=== PATIENT | female | born 1995 ===

== ENCOUNTER 2024-05-31 07:23 | Inpatient (IN) ==
[2024-05-31] MEDS ORDERED: Lidocaine 1% VIAL 10 MG/ML 30 ML VIAL INJ PRN (07:51)
[2024-05-31] MEDS ORDERED: Prochlorperazine 5 mg/ml 2 ml VIAL (10 mg) IV PRN (07:51)
[2024-05-31] MEDS ORDERED: Nalbuphine 10 MG/ML 1 ML VIAL IV PRN (07:51)
[2024-05-31 08:19] LABS: Hematocrit 36.4 % (35-45); Hemoglobin 12.3 g/dL (11.5-14.3); Mean Corpuscular Hemoglobin 34.7 pg (27-33); Mean Corpuscular Hgb Conc 33.8 g/dL (31-36); Mean Corpuscular Volume 102.5 fL (80-97); Mean Platelet Volume 10.3 fL (7.5-11.2); Platelet Count 121 10^3/uL (150-450); Red Blood Count 3.56 10^6/uL (3.63-4.92); Red Cell Distribution Width 12.6 % (12-17); White Blood Count 16.5 10^3/uL (3.8-11.8)
[2024-05-31 08:52] LABS: ABS Lymphocytes 0.9 10^3/uL (1.0-4.8); ABS Monocytes 0.7 10^3/uL (0.0-0.9); ABS Neutrophils 14.8 10^3/uL (1.5-7.6); ABS Nucleated RBC 0.01 10^3/ul; Lymphocyte % 5.6 %; Nucleated Red Blood Cells % 0.1 %/100WBC (0.0-0.8)
[2024-05-31] MEDS ORDERED: Sodium Citrate/Citric Acid LIQ 15 ML UDC PO PRN (09:56)
[2024-05-31] MEDS ORDERED: Phenylephrine 40 mcg/mL 10mL (400mcg) SYRINGE IV PUSH PRN ×2 (09:56)
[2024-05-31] MEDS: OBEPIDURAL (200 ML) 200 ML EPIDURAL SCH (10:00)
[2024-05-31] MEDS: Oxytocin in LR 20,000 MILLI.UNIT/1,000 ML BAG IV SCH ×2 (11:48→23:52)
[2024-05-31 13:03] LABS: Urine Benzodiazepine Screen None Detected (None Detect); Urine Cannabinoids Screen None Detected (None Detect); Urine Opiates Screen None Detected (None Detect)
[2024-05-31 13:08] LABS: Urine Appearance Clear; Urine Bilirubin Negative (Negative); Urine Blood Negative (Negative); Urine Color Light-Yellow; Urine Glucose Negative (Negative); Urine Ketones 1+ (Negative); Urine Nitrite Negative (Negative); Urine Protein Negative (Negative); Urine Specific Gravity 1.013 (1.002-1.030); Urine Urobilinogen Negative (Negative)
[2024-05-31] MEDS ORDERED: Glycerin ADULT 2.4 gm SUPP PR PRN (15:53)
[2024-05-31] MEDS ORDERED: Lactated Ringers 1000 ml BAG 1,000 ML IV SCH (16:00)
[2024-05-31] MEDS: Dibucaine 1% OINT 28.35 GM TUBE PR PRN (18:34)
[2024-05-31] MEDS: Witch Hazel PAD JAR TOPICAL PRN (18:34)
[2024-05-31] MEDS: OBEPIDURAL (200 ML) 200 ML EPIDURAL ONE (23:50)
[2024-05-31] MEDS: Lactated Ringers 1000 ml BAG 1,000 ML IV SCH ×2 (23:50→23:51)
[2024-05-31] MEDS: Lactated Ringers 1000 ml BAG 1,000 ML IV ONE ×2 (23:50→23:51)
[2024-05-31] MEDS: Lidocaine 1.5% EPI 1:200,000 30 ML SDV ONE (23:50)
[2024-05-31] MEDS: Buffered Lidocaine 1% SYRIN 1 ml INTRADERM ONE (23:50)
[2024-05-31] MEDS: Phenylephrine 40 mcg/mL 10mL (400mcg) SYRINGE ONE (23:50)
[2024-06-01 07:03] LABS: Hematocrit 29.5 % (35-45); Hemoglobin 10.5 g/dL (11.5-14.3); Mean Corpuscular Hemoglobin 35.4 pg (27-33); Mean Corpuscular Hgb Conc 35.5 g/dL (31-36); Mean Corpuscular Volume 99.8 fL (80-97); Red Blood Count 2.96 10^6/uL (3.63-4.92); Red Cell Distribution Width 12.4 % (12-17); White Blood Count 12.6 10^3/uL (3.8-11.8)
[2024-06-01 07:46] LABS: ABS Lymphocytes 2.1 10^3/uL (1.0-4.8); ABS Monocytes 0.8 10^3/uL (0.0-0.9); ABS Neutrophils 9.8 10^3/uL (1.5-7.6); ABS Nucleated RBC 0.01 10^3/ul; Eosinophil % 0.1 %; Lymphocyte % 16.5 %; Mean Platelet Volume 10.2 fL (7.5-11.2); Platelet Count 88 10^3/uL (150-450)
[2024-06-01 11:52] VITALS: BP 100/54
[2024-06-01] MEDS ORDERED: RHO D Immune Globulin (HUMAN) 300 MCG = 1,500 I.U. INJ IM ONE (15:47)
[2024-06-01] MEDS: RHO D Immune Globulin (HUMAN) 300 MCG = 1,500 I.U. INJ IM PRN (15:53)
== END 2024-06-01 18:34 | disposition home or self-care (01) | DRG 560 ==
LOC: MCHOBOUT 07:23 → MCHOB 07:45
PROVIDERS: ADMIT Obstetrics & Gynecology; ATTEND Obstetrics & Gynecology